=== PATIENT | female | born 1965 | race Caucasian/White ===

== ENCOUNTER 2016-07-05 12:34 | Emergency (ER) | payer SELFPAY ==
[~2016-07-05] VITALS: Ht 165.1 cm; Wt 69.4 kg
[2016-07-05 14:16] VITALS: BP 140/90
== END 2016-07-05 14:17 | disposition home or self-care (01) ==
LOC: ED 12:34
DX: S96.911A Strain of unspecified muscle and tendon at ankle and foot level, right foot, initial encounter (principal); F17.200 Nicotine dependence, unspecified, uncomplicated; F12.10 Cannabis abuse, uncomplicated; Z79.899 Other long term (current) drug therapy; Z88.5 Allergy status to narcotic agent; Z88.6 Allergy status to analgesic agent; X50.1XXA Overexertion from prolonged static or awkward postures, initial encounter; Y93.89 Activity, other specified; Y92.89 Other specified places as the place of occurrence of the external cause; Y99.8 Other external cause status

== ENCOUNTER 2019-05-07 15:02 | Emergency (ER) | payer MEDICAID ==
[~2019-05-07] VITALS: Ht 167.6 cm; Wt 79.8 kg
[2019-05-07 15:07] VITALS: BP 118/67; Ht 167.6 cm; Wt 79.8 kg
== END 2019-05-07 18:55 | disposition home or self-care (01) ==
LOC: ED 15:02
DX: M75.31 Calcific tendinitis of right shoulder (principal); F17.210 Nicotine dependence, cigarettes, uncomplicated; Z88.8 Allergy status to other drugs, medicaments and biological substances; Z98.890 Other specified postprocedural states
CPT/HCPCS: 99406